=== PATIENT | male | born 1995 | race Two or more races ===

== ENCOUNTER 2024-04-29 11:14 | Emergency (ER) | payer MEDICAID ==
[~2024-04-29] VITALS: Ht 175.3 cm; Wt 91.9 kg
[2024-04-29] MEDS: cefTRIAXone SOD 1,000 MG VL IM ONE (13:46)
[2024-04-29] MEDS ORDERED: CEPH500T PO (14:28)
[2024-04-29] MEDS ORDERED: BACDST PO (14:28)
[2024-04-29 14:44] VITALS: BP 153/98; PULSE 85; RESP 17; TEMP 99.4; O2SAT 98
== END 2024-04-29 14:47 | disposition home or self-care (01) ==
LOC: ER 11:18
DX: S70.361A Insect bite (nonvenomous), right thigh, initial encounter (principal); I10 Essential (primary) hypertension; W57.XXXA Bitten or stung by nonvenomous insect and other nonvenomous arthropods, initial encounter; Y93.89 Activity, other specified; Y92.89 Other specified places as the place of occurrence of the external cause; Y99.8 Other external cause status
CPT/HCPCS: 96372; 99283; J0696

== ENCOUNTER 2025-02-22 16:43 | Inpatient (IN) | payer MEDICAID ==
[~2025-02-22] VITALS: Ht 175.3 cm; Wt 100.6 kg
[~2025-02-22 16:43] MED LIST: BACDST PO; CEPH500T PO
[2025-02-22 17:18] LABS: Basophils # (auto) 0.1 10 ^3/uL (0-0.2); Eosinophils # (auto) 0 10 ^3/uL (0-0.8); Mean Corpuscular Hemoglobin 34.5 pg (28.0-32.0)
[2025-02-22 17:20] VITALS: PULSE 105; RESP 20; O2SAT 94
[2025-02-22 17:20] LABS: Basophils % (auto) 1.4 % (0.0-2.0); Eosinophils % (auto) 0.3 % (0.0-7.0); Hematocrit 50.7 % (41.0-53.0); Lymphocytes # (auto) 1.8 10 ^3/uL (0.4-5.4); Lymphocytes % (auto) 33.2 % (10.0-50.0); Mean Corpuscular Hgb Conc. 35.5 g/dL (32.0-36.0); Mean Corpuscular Volume 97.2 fL (80.0-100.0); Monocytes # (auto) 0.6 10 ^3/uL (0-1.3); Monocytes % (auto) 10.2 % (0.0-12.0); Neutrophils % (auto) 54.9 % (37.0-80.0); Nucleated Red Blood Cells % 0.2 %; Platelet Count (auto) 268 10^3/uL (140-450); Red Blood Cells 5.21 10^6/uL (4.5-5.90); Red Cell Distribution Width 12.4 % (11.8-14.3); White Blood Cell 5.5 10^3/uL (4.4-10.8)
[2025-02-22] MEDS: LORazepam 2MG/ML-1ML VIAL IV ONE (17:21)
[2025-02-22] MEDS: chlordiazePOXIDE HCL 25 MG CAP PO ONE (17:21)
[2025-02-22] MEDS: SODIUM CHLORIDE 0.9% 2,000 ML IV ONE (17:21)
[2025-02-22 17:42] LABS: Alkaline Phosphatase 81 U/L (46-116); Anion Gap 16 (5-15); Calcium 9.8 mg/dL (8.7-10.4); Carbon Dioxide 22 mmol/L (20-31); Chloride 104 mmol/L (98-107); Sodium 142 mmol/L (136-145)
[2025-02-22 17:45] LABS: Alanine Aminotransferase 84 U/L (7-40); Albumin 5.1 g/dL (3.2-4.8); Aspartate Aminotransferase 63 U/L (13-40); BUN/Creatinine Ratio 6.8 (10.0-20.0); Bilirubin, Total 1.3 mg/dL (0.2-1.0); Blood Urea Nitrogen < 5 mg/dL (9-23); Glucose 116 mg/dL (74-106); Potassium 3.2 mmol/L (3.5-5.1); Total Protein 8.3 g/dL (5.7-8.2)
--- NOTE | 2025-02-22 18:21 | DVH ---
CHEST RADIOGRAPH Indication: etoh wdl Technique: Single frontal view of the chest was obtained Comparison: None FINDINGS: Lines and Tubes: None Lungs: No focal consolidation. Pleura: No effusion. No pneumothorax. Cardiomediastinal contours: Unremarkable Bones: No acute osseous abnormality. IMPRESSION: 1. No acute cardiopulmonary disease. HS:Y
--- NOTE | 2025-02-22 20:18 | ED.PDOC ---
History of Present Illness HPI Comments 39-year-old male brought in by family complaining of chest pain, generalized weakness and shakiness, onset this morning. Patient states he usually drinks a 12 pack of beer or more per day, however because he was not feeling well, he drank only a few beers today. He denies any nausea, vomiting, diaphoresis or edema. He states he feels very anxious. He has not had any loss of consciousness or seizure. Chief Complaint: Withdrawal Time Seen by MD: 16:59 Primary Care Provider: none Allergies: Coded Allergies: NO KNOWN ALLERGIES (Unverified , 10/27/23) Home Meds Active Scripts Cephalexin Monohydrate (Cephalexin) 500 Mg Tab, 1 TAB PO QID for 5 Days, #20 TAB 0 Refills Prov:GEORGE RODAS NP 04/29/24 Sulfamethoxazole W/Trimethopri (Bactrim Ds Tablet) 1 Tab Tb, 1 TAB PO BID for 7 Days, #14 TAB 0 Refills Prov:GEORGE RODAS NP 04/29/24 Mode of Arrival: Ambulatory Past Medical History PAST MEDICAL HISTORY: HTN Past Medical History (Other): Alcohol dependence Surgical History: Hernia Repair Family History Family History: Family hx of DM Social History Smoker: Cigarettes Alcohol: Heavy Drugs: Denies Drug Use Lives In: Home All Other Systems: Reviewed and Negative (Comprehensive systems review obtained and negative except for what is stated in the HPI.) Physical Exam General Appearance: Mild Distress HEENT: Other (Pupils and face symmetric. Moist mucous membranes.) Neck: Full Range of Motion, Normal Inspection Respiratory: Lungs Clear, No Accessory Muscle Use, No Respiratory Distress, Normal Breath Sounds Cardiovascular: No Edema, No JVD, Regular Rate/Rhythm Breast Exam: Deferred Gastrointestinal: Non Tender, Soft Genitalia: Deferred Pelvic: Deferred Rectal: Deferred Extremities: Normal inspection, Normal range of motion, Non-tender, No pedal edema Neurologic: Alert (Oriented x4), Normal Affect, Other (Anxious, shaky, ambulatory) Cerebellar Function: Tremor Reflexes: NOT DONE Skin: Dry, Normal Color, Warm Lymphatic: NOT DONE Was a procedure done? Was a procedure done?: No EKG EKG : Comments Sinus tach, rate 112, normal CT and QRS intervals, QTC prolonged at 509, normal axis, normal QRS, no ST/T change. Differential Dx Considerations may include: Alcohol withdrawal, anxiety, electrolyte imbalance, ACS, MD, arrhythmia, among others X-Ray, Labs, Meds, VS Vital Signs Date Time Temp Pulse Resp B/P (MAP) Pulse Ox O2 Delivery O2 Flow Rate FiO2 02/22/25 17:20 105 20 166/117 (133) 94 02/22/25 17:20 105 20 94 Room Air* 0 21 02/22/25 16:57 98.3 115 20 179/113 (135) 96 98.3 02/22/25 16:55 112 Lab Test 02/22/25 18:15 02/22/25 17:11 Range/Units Troponin I High Sensitivity 32 37 </=54 ng/L White Blood Count 5.5 4.4-10.8 10^3/uL Red Blood Count 5.21 4.5-5.90 10^6/uL Hemoglobin 18.0 H 13.5-17.5 g/dL Hematocrit 50.7 41.0-53.0 % Mean Corpuscular Volume 97.2 80.0-100.0 fL Mean Corpuscular Hemoglobin 34.5 H 28.0-32.0 pg Mean Corpuscular Hemoglobin Concent 35.5 32.0-36.0 g/dL Red Cell Distribution Width 12.4 11.8-14.3 % Platelet Count 268 140-450 10^3/uL Mean Platelet Volume 7.7 6.9-10.8 fL Neutrophils (%) (Auto) 54.9 37.0-80.0 % Lymphocytes (%) (Auto) 33.2 10.0-50.0 % Monocytes (%) (Auto) 10.2 0.0-12.0 % Eosinophils (%) (Auto) 0.3 0.0-7.0 % Basophils (%) (Auto) 1.4 0.0-2.0 % Neutrophils # (Auto) 3.0 1.6-8.6 10 ^3/uL Lymphocytes # (Auto) 1.8 0.4-5.4 10 ^3/uL Monocytes # (Auto) 0.6 0-1.3 10 ^3/uL Eosinophils # (Auto) 0 0-0.8 10 ^3/uL Basophils # (Auto) 0.1 0-0.2 10 ^3/uL Nucleated Red Blood Cells 0.2 % Sodium Level 142 136-145 mmol/L Potassium Level 3.2 L 3.5-5.1 mmol/L Chloride Level 104 98-107 mmol/L Carbon Dioxide Level 22 20-31 mmol/L Anion Gap 16 H 5-15 Blood Urea Nitrogen < 5 L 9-23 mg/dL Creatinine 0.74 0.700-1.30 mg/dL Glomerular Filtration Rate Calc 125 >90 mL/min BUN/Creatinine Ratio 6.8 L 10.0-20.0 Serum Glucose 116 H 74-106 mg/dL Calcium Level 9.8 8.7-10.4 mg/dL Total Bilirubin 1.3 H 0.2-1.0 mg/dL Aspartate Amino Transferase (AST) 63 H 13-40 U/L Alanine Aminotransferase (ALT) 84 H 7-40 U/L Alkaline Phosphatase 81 46-116 U/L B-Type Natriuretic Peptide 10.50 0-100 pg/mL Total Protein 8.3 H 5.7-8.2 g/dL Albumin 5.1 H 3.2-4.8 g/dL Current Medications Medications (Trade) Dose Ordered Sig/López Route Start Time Stop Time Status Last Admin Sodium Chloride 2,000 ml @ 1,000 mls/hr Q2H ONCE IV 02/22/25 17:00 02/22/25 18:59 DC 02/22/25 17:21 Lorazepam (Ativan Inj) 1 mg ONCE ONCE IV 02/22/25 17:00 02/22/25 17:02 DC 02/22/25 17:21 Chlordiazepoxide HCl (Librium Capsule) 50 mg ONCE ONCE PO 02/22/25 17:00 02/22/25 17:02 DC 02/22/25 17:21 X-Ray, Labs, Meds, VS Comment 29-year-old male with a history of hypertension and alcohol dependence complaining of chest pain, generalized weakness and shakiness. Patient admits to only drinking a few beers today. He states he typically drinks a 12 pack or more of beer per day. Vitals remarkable for heart rate 112, BP 179/113 Exam remarkable for tachycardia and tremors Rhythm strip independently interpreted by me: Sinus rhythm, rate 112, no ectopy. CBC remarkable, metabolic panel remarkable for potassium 3.2, total bili 1.3, AST 63, ALT 84, BNP and troponin negative Patient treated with the following in the ED: 1 L 0.9 normal saline IV bolus, Ativan 1 mg IV, Librium 50 mg p.o., effervescent potassium 50 mEq p.o. , hydralazine 5 mg IV On re-evaluation, patient states his symptoms have somewhat improved, however he still feels shaky and is not comfortable being discharged home. Plan is to admit the patient for treatment of alcohol withdrawal and blood pressure control. Time of 1ST Reevaluation: 20:16 Reevaluation 1ST: Improved Patient Education/Counseling: Diagnosis, Treatment, Need For Follow Up Family Education/Counseling: No Family Present Departure 1 Departure Time of Disposition: 20:17 Impression: Primary Impression: Alcohol withdrawal Qualified Codes: F10.939 - Alcohol use, unspecified with withdrawal, unspecified Additional Impressions: Hypokalemia Hypertensive urgency Disposition: 09 ADMITTED INPATIENT Admit to: [facility] Condition: Guarded Critical Care Note Critical Care Time?: No Stability Stability form required: No Heart Score Heart Score: Heart Score Response (Comments) Value History Moderate Suspicious 1 EKG Normal 0 Age <45 0 Risk Factors 1 or 2 risk factors 1 Troponin Normal limit 0 Total 2 IVETTE PANDA MD February 22, 2025 20:18
[2025-02-22] MEDS: ENOXAPARIN SOD 40 MG/0.4 ML SYRINGE SC ONE (20:45)
[2025-02-22] MEDS ORDERED: DOCUSATE SOD 100 MG CAP PO PRN (20:45)
[2025-02-22] MEDS: FOLIC ACID 1 MG in D5W 5% 50 ML INJ ONE (20:45)
[2025-02-22] MEDS ORDERED: MORPHINE SULFATE INJ 2 MG/ml SYRG IV PRN (20:45)
[2025-02-22] MEDS ORDERED: NITROGLYCERIN 0.4 MG SL TAB SL PRN (20:45)
[2025-02-22 21:09] LABS: Magnesium 1.9 mg/dL (1.6-2.6)
[2025-02-22] MEDS: POTASSIUM EFFERVESENT TAB 25 MEQ PO ONE (21:30)
[2025-02-22] MEDS: PANTOPRAZOLE 40 MG/10 ML VIAL INJ IV ONE (21:31)
[2025-02-22] MEDS: THIAMINE 100mg/ml INJ (200mg/2ml VIAL) IM ONE (21:31)
[2025-02-22] MEDS: hydrALAZINE HCL 20 MG/ML VL IV ONE ×2 (21:32→22:02)
[2025-02-22] MEDS: SODIUM CHLOR 0.9% PF (SALINE LOCK) 10ML VIAL/SYR IV SCH (21:34)
--- NOTE | 2025-02-22 21:35 | DVHHP2 ---
History of Present Illness History of Present Illness Patient is 29 years old male with past medical history of hypertension, alcohol dependence came with a complaint of chest pain. As per patient he started having chest pain in the morning around 9:00 a.m when he was lying down., gradual onset, central, pressure-like, 8/10 at the beginning no aggravating or relieving factor. Patient also reported feeling shaking, dizzy but no loss of consciousness. Patient also had nausea and vomiting once per no blood, yellowish fluid. On further inquiry patient reported feeling anxious, shaking of the hands. As per patient he drinks almost 12 beers per day for last 8 years, he did not a little bit less this morning and after that he started having all this symptoms. Patient denied any fever, acute constipation or diarrhea, acute joint pain or swelling, sick contact, acute dysarthria or change in vision. Initial lab workup revealed hypokalemia with a potassium 3.2, transaminitis with elevated serum bilirubin 1.3, AST 63, ALT 84, lactic acid 2.2, negative for troponin I and BNP. UDS negative. As per patient he did not see any doctor for a while. No PCP per patient, not seeing any doctor Past Medical History Hypertension, not on any medication Past Surgical History Bilateral inguinal hernia repair when he was child Family History Dad has hypertension, diabetes mellitus Past Social History Lives with parents, vapes, occasional marijuana, drink alcohol almost 12 beers per day for last 8 years. Home meds-denies taking any meds Review of Systems Review of Systems Allergy- NKDA Patient was seen today at the bedside. Cardiovascular- deny acute cough or palpitation Respiratory denies cough or short of breath or wheezing Gastrointestinal- denies any rectal bleeding, nausea or vomiting Musculoskeletal-denies acute joint swelling or tenderness or redness Neurological- mild tremor on both hands+ Psychiatry- denies depression or SI or HI Skin- denies acute rash or purpura Allergies: Coded Allergies: NO KNOWN ALLERGIES (Unverified , 10/27/23) Medications Current Medications Medications Dose Ordered Sig/López Route Start Time Stop Time Status Last Admin Dose Admin Sodium Chloride 10 ml Q8HR IV 02/22/25 22:00 Ondansetron HCl 4 mg Q4HP PRN IV 02/22/25 20:45 Docusate Sodium 100 mg BIDPRN PRN PO 02/22/25 20:45 Acetaminophen 650 mg Q6HP PRN PO 02/22/25 20:45 Morphine Sulfate 2 mg Q4HPRN PRN IV 02/22/25 20:45 Nitroglycerin 0.4 mg Q5MINP PRN SL 02/22/25 20:45 Morphine Sulfate 2 mg Q30M PRN IV 02/22/25 20:45 Enoxaparin Sodium 40 mg DAILY SC 02/23/25 10:00 Pantoprazole Sodium 40 mg DAILY IV 02/23/25 10:00 Thiamine HCl 100 mg DAILY IV 02/23/25 10:00 Folic Acid 1 mg/ Dextrose 50.2 ml @ 200.8 mls/ hr DAILY INJ 02/23/25 10:00 Folic Acid 1 mg/ Multivitamins 10 ml/Magnesium Sulfate 8 meq/ Thiamine HCl 100 mg/Dextrose 1,013.2 ml @ 125.001 mls/hr DAILY@1800 INJ 02/23/25 18:00 Hydralazine HCl 10 mg Q6HP PRN IV 02/22/25 21:30 UNV Lorazepam 1 mg Q2HPRN PRN IV 02/22/25 21:30 UNV Chlordiazepoxide HCl 5 mg Q4HPRN PRN PO 02/22/25 21:30 UNV Sodium Chloride 1,000 ml @ 150 mls/hr Q6H40M IV 02/22/25 21:30 UNV Exam Vital Signs Vital Signs Date Time Temp Pulse Resp B/P (MAP) Pulse Ox O2 Delivery O2 Flow Rate FiO2 02/22/25 21:19 99.2 94 20 164/107 (126) 96 99.2 02/22/25 17:20 Room Air* 0 21 Exam General examination- , alert, oriented, conversant HEENT- PEERLA, no acute nasal discharge Cardiovascular- S1-S2 audible, rate and rhythm regular, no murmur Respiratory- CTAB, no wheeze or rhonchi Gastrointestinal-nontender, bowel sound+. Nondistended Musculoskeletal-no acute joint swelling or tenderness or redness Lower extremity- no leg edema Neurological-mild tremor on both hands+ Psychiatry- denies depression or SI or HI Skin- no acute rash or purpura Labs/Xrays Labs Test 02/22/25 21:01 02/22/25 18:15 02/22/25 17:11 Range/Units Plasma/Serum Blood Alcohol 68.9 H <10 mg/dL Troponin I High Sensitivity 32 </=54 ng/L White Blood Count 5.5 4.4-10.8 10^3/uL Red Blood Count 5.21 4.5-5.90 10^6/uL Hemoglobin 18.0 H 13.5-17.5 g/dL Hematocrit 50.7 41.0-53.0 % Mean Corpuscular Volume 97.2 80.0-100.0 fL Mean Corpuscular Hemoglobin 34.5 H 28.0-32.0 pg Mean Corpuscular Hemoglobin Concent 35.5 32.0-36.0 g/dL Red Cell Distribution Width 12.4 11.8-14.3 % Platelet Count 268 140-450 10^3/uL Mean Platelet Volume 7.7 6.9-10.8 fL Neutrophils (%) (Auto) 54.9 37.0-80.0 % Lymphocytes (%) (Auto) 33.2 10.0-50.0 % Monocytes (%) (Auto) 10.2 0.0-12.0 % Eosinophils (%) (Auto) 0.3 0.0-7.0 % Basophils (%) (Auto) 1.4 0.0-2.0 % Neutrophils # (Auto) 3.0 1.6-8.6 10 ^3/uL Lymphocytes # (Auto) 1.8 0.4-5.4 10 ^3/uL Monocytes # (Auto) 0.6 0-1.3 10 ^3/uL Eosinophils # (Auto) 0 0-0.8 10 ^3/uL Basophils # (Auto) 0.1 0-0.2 10 ^3/uL Nucleated Red Blood Cells 0.2 % Sodium Level 142 136-145 mmol/L Potassium Level 3.2 L 3.5-5.1 mmol/L Chloride Level 104 98-107 mmol/L Carbon Dioxide Level 22 20-31 mmol/L Anion Gap 16 H 5-15 Blood Urea Nitrogen < 5 L 9-23 mg/dL Creatinine 0.74 0.700-1.30 mg/dL Glomerular Filtration Rate Calc 125 >90 mL/min BUN/Creatinine Ratio 6.8 L 10.0-20.0 Serum Glucose 116 H 74-106 mg/dL Calcium Level 9.8 8.7-10.4 mg/dL Magnesium Level 1.9 1.6-2.6 mg/dL Total Bilirubin 1.3 H 0.2-1.0 mg/dL Aspartate Amino Transferase (AST) 63 H 13-40 U/L Alanine Aminotransferase (ALT) 84 H 7-40 U/L Alkaline Phosphatase 81 46-116 U/L B-Type Natriuretic Peptide 10.50 0-100 pg/mL Total Protein 8.3 H 5.7-8.2 g/dL Albumin 5.1 H 3.2-4.8 g/dL Lipase 51 12-53 U/L Assessment/Plan Assessment/Plan Assessment and plan Acute alcohol withdrawal Acute chest pain rule out acute coronary syndrome Hypertensive urgency Alcohol dependence Lactic acidosis Mild hypokalemia Transaminitis Fatty liver Hepatomegaly Obesity potassium 3.2, transaminitis with elevated serum bilirubin 1.3, AST 63, ALT 84, lactic acid 2.2, Ultrasound of the abdomen revealed-Liver appears mildly enlarged measuring 17.8 cm and demonstrates diffuse increased echogenicity consistent with fatty infiltration . Plan Current CIWA score 4 Continue banana bag as prescribed Continue IV fluid as prescribed Other p.r.n. medication as prescribed Ordered thiamine Ordered folic acid UDS-negative Patient was counseled about the effect of alcoholism on health Patient refused to get any support regarding alcohol rehab Goals of care, Code status ; discussed with >15 minutes PUD prophylaxis: Pantoprazole DVT prophylaxis: Lovenox Plan discussed with Dr. Mcwilliams , nursing staff, Total time spent on patient evaluation, chart review, assessment and plan, discussion discussion >35 minutes Plan discussed with: Patient, Other (RN) My Orders Orders - [place] [facility] Procedure Category Date Status Time Admit ADMIT 02/22/25 Transmitted 20:44 Code Status CODE 02/22/25 Transmitted 20:44 Sodium Chloride Lock PHA 02/22/25 In Process (Saline Lock Ns) 22:00 Ondansetron Hcl PHA 02/22/25 In Process (Zofran) 20:45 Docusate Sodium PHA 02/22/25 In Process Capsule (Colace 20:45 Complete Blood Count LAB 02/23/25 Verified 04:00 Npo (Nothing By DIET 02/23/25 Transmitted Mouth) Diet Breakfast Acetaminophen Tablet PHA 02/22/25 In Process (Tylenol Tablet) 20:45 Morphine Sulfate PHA 02/22/25 In Process Injection 20:45 Nitroglycerin PHA 02/22/25 In Process Sublingual (Ntrostat 20:45 Morphine Sulfate PHA 02/22/25 In Process Injection 20:45 Oxygen By Nasal RT 02/22/25 Transmitted Cannula 20:44 Stat Ekg For Chest MARY 02/22/25 In Process Pain 20:44 Notify Of Changes MARY 02/22/25 In Process From Base 20:44 Bass Singer For MARY 02/22/25 In Process 24 Hours 20:44 Emergency Dysrhythmia MARY 02/22/25 In Process Protocol 20:44 Rhythm Strips Once MARY 02/22/25 In Process Every Shift 20:44 Enoxaparin Sodium PHA 02/23/25 In Process (Lovenox) 10:00 Pantoprazole PHA 02/23/25 In Process (Protonix) 10:00 Thiamine Inj PHA 02/23/25 In Process 10:00 Folic Acid PHA 02/23/25 In Process 10:00 Folic Acid... PHA 02/23/25 In Process 18:00 Thyroid Stimulating LAB 02/22/25 In Process Hormone 20:47 Comprehensive LAB 02/23/25 Verified Metabolic Panel 04:00 Magnesium LAB 02/23/25 Verified 04:00 Hydralazine Injection PHA 02/22/25 Logged (Apresoline Inject 21:30 Lorazepam 2mg/Ml Inj PHA 02/22/25 Logged (Ativan Inj) 21:30 Etoh Withdrawal MARY 02/22/25 In Process Assessment 21:24 Etoh Withdrawal MARY 02/22/25 In Process Assessment 21:24 Chlordiazepoxide Hcl PHA 02/22/25 Logged Capsule (Librium Ca 21:30 Sodium Chloride 0.9% PHA 02/22/25 Logged 21:30 Lactate Dehydrogenase LAB 02/22/25 Transmitted 21:28 Lactate Dehydrogenase LAB 02/23/25 Verified 04:00 Date of Service: February 22, 2025 Billing Provider: MARK MCWILLIAMS MD Common Visit Codes: 66109-SMABECG INP/OBS CARE (HIGH) Secondary Visit Codes: 28394-[id number] CARE PLAN 30 MINUTES [place] [facility] February 22, 2025 21:35
[2025-02-22] MEDS: ONDANSETRON HCL 4 MG/2 ML VIAL IV PRN (21:36)
[2025-02-22] MEDS: SODIUM CHLORIDE 0.9% 1,000 ML IV SCH (21:47)
[2025-02-22 22:55] VITALS: BP 152/87; PULSE 81; RESP 18; TEMP 98.6; O2SAT 97
--- NOTE | 2025-02-22 23:14 | DVH ---
INDICATION: HISTORY OF ALCOHOLISM, TRANSAMINITIS TECHNIQUE: Multiple real-time sonographic images were obtained of the right upper quadrant. COMPARISON: US ABDOMEN LIMITED on DOS: 10/27/23 FINDINGS: Liver appears mildly enlarged measuring 17.8 cm and demonstrates diffuse increased echogenicity consi stent with fatty infiltration . No focal lesion is identified in the liver. No evidence of intrahepat ic or extrahepatic biliary ductal dilatation with the common bile duct measuring 5 mm. Gallbladder appears unremarkable with no evidence of stones, wall thickening or pericholycystic fluid . Sonographic Conti's sign was reportedly negative. Right kidney measures 12.7 cm and appears unremarkable. No hydronephrosis. Pancreas is obscured by overlying bowel gas. No free fluid/fluid collection. IMPRESSION: No acute abnormality identified. Fatty infiltration of the liver.
[2025-02-22 23:33] LABS: Urine Bacteria None Seen /hpf (None Seen)
[2025-02-22 23:52] LABS: Benzodiazephine Screen, Urine Neg (NEGATIVE)
[2025-02-22 23:53] LABS: Cannabinoid Screen, Urine Neg (NEGATIVE)
[2025-02-22 23:54] LABS: Lactic Acid w/Reflex 2.2 mmol/L (0.4-2.0)
[2025-02-22 23:54] LABS: Amphetamine Screen, Urine Neg (NEGATIVE); Barbiturate Scree,Urine Neg (NEGATIVE); Opiate Scree,Urine Neg (NEGATIVE); Phencyclidine Screen, Urine Neg (NEGATIVE)
[2025-02-22 23:55] LABS: Cocaine Screen, Urine Neg (NEGATIVE)
[2025-02-22 23:57] LABS: Urine Blood Negative /uL (Negative); Urine Clarity Clear (Clear); Urine Color Yellow (Yellow); Urine Hyaline Cast FEW /lpf (0 - 2); Urine Mucus FEW (None Seen); Urine Protein, UAD 1+ (Negative); Urine Specific Gravity 1.024 (1.001-1.035); Urine Squamous Epithelial Cell None Seen /hpf (<5); Urine Urobilinogen 4 mg/dL (Negative); Urine WBC 1 /HPF (0-3)
[2025-02-23] VITALS (8 sets, daily range): BP systolic 95–165; BP diastolic 63–97; PULSE 52–102; RESP 16–18; TEMP 98.1–98.6; O2SAT 52–100
[2025-02-23 04:47] LABS: Basophils # (auto) 0.1 10 ^3/uL (0-0.2); Eosinophils # (auto) 0.1 10 ^3/uL (0-0.8); Monocytes # (auto) 0.6 10 ^3/uL (0-1.3); Neutrophils # (auto) 2.3 10 ^3/uL (1.6-8.6); Nucleated Red Blood Cells % 0.2 %
[2025-02-23 04:48] LABS: Basophils % (auto) 1.2 % (0.0-2.0); Eosinophils % (auto) 1.8 % (0.0-7.0); Hematocrit 45.9 % (41.0-53.0); Hemoglobin 16.2 g/dL (13.5-17.5); Lymphocytes # (auto) 1.7 10 ^3/uL (0.4-5.4); Lymphocytes % (auto) 37.1 % (10.0-50.0); Mean Corpuscular Hemoglobin 34.8 pg (28.0-32.0); Mean Corpuscular Hgb Conc. 35.2 g/dL (32.0-36.0); Monocytes % (auto) 12.1 % (0.0-12.0); Neutrophils % (auto) 47.8 % (37.0-80.0); Platelet Count (auto) 204 10^3/uL (140-450); Red Blood Cells 4.64 10^6/uL (4.5-5.90); Red Cell Distribution Width 12.2 % (11.8-14.3); White Blood Cell 4.7 10^3/uL (4.4-10.8)
[2025-02-23 05:05] LABS: Alkaline Phosphatase 61 U/L (46-116); Anion Gap 10 (5-15); Carbon Dioxide 28 mmol/L (20-31); Chloride 105 mmol/L (98-107); Glucose 86 mg/dL (74-106); Magnesium 1.7 mg/dL (1.6-2.6); Potassium 3.8 mmol/L (3.5-5.1); Sodium 143 mmol/L (136-145); Total Protein 7.1 g/dL (5.7-8.2)
[2025-02-23 05:06] LABS: Alanine Aminotransferase 62 U/L (7-40); Albumin 4.5 g/dL (3.2-4.8); Aspartate Aminotransferase 41 U/L (13-40); BUN/Creatinine Ratio 6.9 (10.0-20.0); Bilirubin, Total 1.6 mg/dL (0.2-1.0); Blood Urea Nitrogen < 5 mg/dL (9-23); Calcium 8.6 mg/dL (8.7-10.4)
[2025-02-23] MEDS: MAGNESIUM SULFATE 1GM/100ML 100 ML IV ONE (06:14)
[2025-02-23] MEDS: MORPHINE SULFATE INJ 2 MG/ml SYRG IV PRN (08:36)
[2025-02-23] MEDS: THIAMINE 100mg/ml INJ (200mg/2ml VIAL) IV SCH (09:27)
[2025-02-23] MEDS: PANTOPRAZOLE 40 MG/10 ML VIAL INJ IV SCH (09:28)
[2025-02-23] MEDS: ENOXAPARIN SOD 40 MG/0.4 ML SYRINGE SC SCH (09:31)
[2025-02-23] MEDS ORDERED: FOLIC ACID 1 MG in D5W 5% 50 ML INJ SCH (10:00)
[2025-02-23] MEDS: hydrALAZINE HCL 20 MG/ML VL IV PRN (11:33)
[2025-02-23 12:18] LABS: Hepatitis A Ab IgM Negative; Hepatitis B Core IgM Negative (Negative); Hepatitis B Surface Antibody Negative (Negative); Hepatitis B Surface Antigen Negative (Negative); Hepatitis C Antibody Negative (Negative)
--- NOTE | 2025-02-23 12:42 | ECG ---
[facility] Test Date: 2025-02-22 Test Time: 16:55:30 Pat Name: CORETTA SAWANT Department: ER Room: 0271T Gender: M Real Estate Transaction Coordinator: SAMMY : 1995 Requested By: IVETTE WEBB Order Number: [id number] Reading MD: Tobi Darden Measurements Intervals [place] Rate: 112 P: 41 NC: 142 QRS: 68 QRSD: 113 T: -1 QT: 373 QTc: 509 Interpretive Statements Sinus tachycardia Borderline intraventricular conduction delay Borderline T abnormalities, inferior leads Prolonged QT interval Electronically Signed On 02-25-2025 12:43:50 PDT by Tobi Darden Please click the below link to view image of tracing.
--- NOTE | 2025-02-23 14:45 | ECG ---
[facility] Test Date: 2025-02-23 Test Time: 10:29:13 Pat Name: CORETTA SAWANT Department: er Room: 0271T Gender: M Sp[employer] Box: hari : 1995 Requested By: TRACEY GATES Order Number: [id number] Reading MD: Tobi Darden Measurements Intervals [place] Rate: 59 P: 39 DE: 151 QRS: 50 QRSD: 125 T: 16 QT: 468 QTc: 464 Interpretive Statements Incomplete analysis due to missing data in precordial lead(s) Sinus arrhythmia Probable left ventricular hypertrophy ST elev, probable normal early repol pattern Missing lead(s): V4 Electronically Signed On 02-25-2025 12:45:41 PDT by Tobi Darden Please click the below link to view image of tracing.
--- NOTE | 2025-02-23 16:12 | DVHPNRES ---
Progress Note Date Seen: February 23, 2025 Resident Creating Document: TRACEY GATES RESIDENT Has the PT tested + for MRSA If YES, has PT been informed?: No Medical Necessity Reason Pt with a Central, PICC or Fol: No Medical Necessity Reason History of Present Illness Patient is 29 years old male with past medical history of hypertension, alcohol dependence came with a complaint of chest pain. As per patient he started having chest pain in the morning around 9:00 a.m when he was lying down., gradual onset, central, pressure-like, 8/10 at the beginning no aggravating or relieving factor. Patient also reported feeling shaking, dizzy but no loss of consciousness. Patient also had nausea and vomiting once per no blood, yellowish fluid. On further inquiry patient reported feeling anxious, shaking of the hands. As per patient he drinks almost 12 beers per day for last 8 years, he did not a little bit less this morning and after that he started having all this symptoms. Patient denied any fever, acute constipation or diarrhea, acute joint pain or swelling, sick contact, acute dysarthria or change in vision. Initial lab workup revealed hypokalemia with a potassium 3.2, transaminitis with elevated serum bilirubin 1.3, AST 63, ALT 84, lactic acid 2.2, negative for troponin I and BNP. UDS negative. No PCP per patient, not seeing any doctor Past Medical History: Hypertension, not on any medication Past Surgical History: Bilateral inguinal hernia repair when he was child Family History: Dad has hypertension, diabetes mellitus Past Social History: Lives with parents, vapes, occasional marijuana, drink alcohol almost 12 beers per day for last 8 years. Unemployed Home meds-denies taking any meds PN: 02/23/2025 Patient is 29 year male with a past medical history of hypertension but noncompliant on medication presented to the ED after having chest pain, and tremors for 1 day. According to the patient, about 9:00 a.m. yesterday morning when lying down patient started having a pressure-like sensation on his chest he rated it 8/10 and with no aggravating or relieving factor. Patient also noticed dizziness and shaking of his upper extremities. He did have vomiting the vomited he had nausea and vomited once. Vomitus was nonbloody, just yellowish in color. The patient is alcohol dependent. He mentioned that he drinks almost 12 bottles of beers each day and he has been doing so for the past 8 years. However he is only being in withdrawal what 3 times the the last withdrawal was about a year ago and then this episode. Subjective Review of Systems Constitutional: Denies fever no chills no feeling of malaise HEENT: Denies headache, ear pain, ear discharges, conjunctivitis, nasal discharge throat pain Cardiovascular: Denies chest pain, palpitation, orthopnea, PND, or pedal edema Respiratory: Denies shortness of breath, cough cough, sputum production, hemoptysis, GI: Denies abdominal pain, No nausea, vomiting, diarrhea, hematemesis, hematochezia, : Denies frequency, urgency, hematuria, Endocrine: Denies unintentional weight gain or weight loss, feeling of hot flashes, [place]: Denies easy bruising, bleeding disorders, epistaxis Musculoskeletal: Denies joint pains, muscle aches Psych: No evidence of depression, leah, suicidal ideation Objective vital signs Vital Sign Date Time Temp Pulse Resp B/P (MAP) Pulse Ox O2 Delivery O2 Flow Rate FiO2 02/23/25 13:00 98.6 86 18 165/70 (101) 96 98.6 02/22/25 17:20 Room Air* 0 21 Total Intake and Output 02/22/25 02/22/25 02/23/25 15:00 23:00 07:00 Intake Total 1000 ml Balance 1000 ml medications Current Medications Medications Dose Ordered Sig/López Route Start Time Stop Time Status Last Admin Dose Admin Sodium Chloride 10 ml Q8HR IV 02/22/25 22:00 Ondansetron HCl 4 mg Q4HP PRN IV 02/22/25 20:45 02/22/25 21:36 4 MG Docusate Sodium 100 mg BIDPRN PRN PO 02/22/25 20:45 Acetaminophen 650 mg Q6HP PRN PO 02/22/25 20:45 Morphine Sulfate 2 mg Q4HPRN PRN IV 02/22/25 20:45 02/23/25 08:36 2 MG Nitroglycerin 0.4 mg Q5MINP PRN SL 02/22/25 20:45 Morphine Sulfate 2 mg Q30M PRN IV 02/22/25 20:45 Enoxaparin Sodium 40 mg DAILY SC 02/23/25 10:00 02/23/25 09:31 40 MG Pantoprazole Sodium 40 mg DAILY IV 02/23/25 10:00 02/23/25 09:28 40 MG Thiamine HCl 100 mg DAILY IV 02/23/25 10:00 02/23/25 09:27 100 MG Folic Acid 1 mg/ Multivitamins 10 ml/Magnesium Sulfate 8 meq/ Thiamine HCl 100 mg/Dextrose 1,013.2 ml @ 125.001 mls/hr DAILY@1800 INJ 02/23/25 18:00 Hydralazine HCl 10 mg Q6HP PRN IV 02/22/25 21:30 02/23/25 11:33 10 MG Lorazepam 1 mg Q2HPRN PRN IV 02/22/25 21:30 Chlordiazepoxide HCl 5 mg Q4HPRN PRN PO 02/22/25 21:30 Sodium Chloride 1,000 ml @ 150 mls/hr Q6H40M IV 02/22/25 21:30 02/23/25 11:22 150 MLS/HR Folic Acid 1 mg DAILY PO 02/24/25 10:00 Examination General Appearance: Alert, Oriented X3, Cooperative, No acute distress. F lushed in the face HEENT: Atraumatic, PERRLA, EOMI, Mucous membrane moist/pink: No visual hallucination Respiratory: Clear to auscultation, Normal air movement Cardiovascular: Regular rate, Normal S1, Normal S2, No murmurs, no chest wall tenderness Abdominal: NO distention, no tenderness, bowel sounds present, no scars noted Extremities: Very mild tremors, Not significant; no tactile hallucinations Skin: No rashes, No breakdown, No significant lesion Neuro: Normal gait, Normal speech, Strength at 5/5 X4 ext, Normal tone, Sensation intact, Cranial nerves 3-12 NL, Reflexes 2+ Psych/Mental Status: Mental status NL, Mood NL laboratory and microbiology Laboratory Tests 02/23/25 04:19 Test 02/23/25 04:19 Range/Units Serum Glucose 86 74-106 mg/dL Problem List/Assessment/Plan Problem List/Assessment/Plan Assessment/ PLAN Acute alcohol withdrawal Alcohol dependence --> CIWA score :5 ( mild tremor, mild nausea, no vomiting, palpitation) --> Continue banana bag as prescribed --> Thiamine, folic acid --> IV Ativan acute 2 hours p.r.n. --> IV Librium 5 mg q.6 hours p.r.n. --> Counseled patient for more than 15 minute on alcohol cessation and the side effects of alcohol abuse. I recommended social service for the patient the patient declined and said he thinking endurance on. Hypertensive urgency --> Nefidepin 30 mg dailyu --> Hydralazine if SBP > 170 Acute chest pain rule out acute coronary syndrome --> troponin negative --> EKG showed prolong qtc Prolong QTc --> likely due to alcohol --> No on any antiboitcs or psych medication Lactic acidosis --> lactic acid 2.2, --> Fluids --> Improved Mild hypokalemia --> potassium 3.2, --> Replaced Hepatic steatosis --> Encourage weight loss and healthy diet Hepatomegaly Grade 1 Obesity --> BMI: 32.1 Transaminitis --> elevated serum bilirubin 1.3, AST 63, ALT 84, Goal of care discussed for more than 25 minutes: Full code He has and plan discussed with Dr. Marcum Plan discussed with: Patient Date of Service: February 23, 2025 Billing Provider: LORIE VALDEZ MD Common Visit Codes: [id number] INP/OBS CARE(HIGH) TRACEY GATES RESIDENT February 23, 2025 16:12 LORIE VALDEZ MD March 01, 2025 02:03
[2025-02-23] MEDS ORDERED: hydrALAZINE HCL 20 MG/ML VL IV PRN (16:30)
[2025-02-23] MEDS: FOLIC ACID 1 MG, MULTIPLE VITAMIN 10 ML, MAGNESIUM SULF SDV 50% 8 MEQ, THIAMINE INJ 100... INJ SCH (17:49)
[2025-02-23] MEDS: NIFEdipine ER 30 MG TAB PO ONE (17:50)
[2025-02-24] VITALS (11 sets, daily range): BP systolic 138–159; BP diastolic 64–109; PULSE 65–146; RESP 16–22; TEMP 97.7–98; O2SAT 94–100
[2025-02-24 09:45] LABS: Chloride 103 mmol/L (98-107); Sodium 136 mmol/L (136-145)
[2025-02-24] MEDS: NIFEdipine ER 30 MG TAB PO SCH (09:45)
[2025-02-24] MEDS: FOLIC ACID 1 MG TAB PO SCH (09:45)
[2025-02-24 09:46] LABS: Anion Gap 10 (5-15); Calcium 9.6 mg/dL (8.7-10.4); Carbon Dioxide 23 mmol/L (20-31)
[2025-02-24 09:51] LABS: Glucose 152 mg/dL (74-106); Potassium 3.4 mmol/L (3.5-5.1)
[2025-02-24 09:52] LABS: Blood Urea Nitrogen 5 mg/dL (9-23)
[2025-02-24] MEDS: LORazepam 2MG/ML-1ML VIAL IV PRN (09:52)
[2025-02-24] MEDS: NIFEdipine ER 30 MG TAB PO ONE (17:45)
[2025-02-24] MEDS: POTASSIUM EFFERVESENT TAB 25 MEQ PO ONE ×2 (17:47→22:17)
[2025-02-24] MEDS: hydroCHLOROthiazide 25 MG TAB PO ONE (17:48)
[2025-02-24] MEDS: MAGNESIUM OXIDE 400 MG TAB PO ONE (17:49)
[2025-02-24] MEDS: MULTIPLE VITAMIN TAB PO ONE (17:49)
[2025-02-24] MEDS: THIAMINE HCL 100 MG TAB PO ONE (17:49)
[2025-02-24] MEDS ORDERED: ACET-1882 PO (19:05)
[2025-02-24] MEDS ORDERED: MULTTAB99 PO (19:05)
[2025-02-24] MEDS ORDERED: NIFE1TAB31 PO (19:05)
[2025-02-24] MEDS ORDERED: FOLI-119 PO (19:05)
[2025-02-24] MEDS ORDERED: THIA100T10 PO (19:05)
[2025-02-24] MEDS ORDERED: HYDR25TA5 PO (19:05)
[2025-02-24] MEDS ORDERED: CHL10C PO (19:06)
[2025-02-24] MEDS ORDERED: GABA300T4 PO ×2 (19:13→19:15)
--- NOTE | 2025-02-24 19:18 | DVHDSRES ---
Discharge Summary Date of Admission Resident Creating Document: TRACEY GATES RESIDENT February 22, 2025 at 20:44 Date of Discharge: February 24, 2025 Admitting Diagnosis alcohol dependence came with a complaint of chest pain. Labs/Diagnostic Data: PATIENT: CORETTA SAWANT ACCT: [id number] UNIT: [id number] : 1995 LOC: ER ROOM / BED: / AGE / SEX: 29 / M ADM STATUS: REG ER SERVICE 1659 ORDERING PHYSICIAN: IVETTE PANDA MD PROCEDURE(s): CXRP - CHEST PORTABLE REASON: etoh wdl ORDER NUMBER(s): [id number], ACCESSION NUMBER(s): [id number] CHEST RADIOGRAPH Indication: etoh wdl Technique: Single frontal view of the chest was obtained Comparison: None FINDINGS: Lines and Tubes: None Lungs: No focal consolidation. Pleura: No effusion. No pneumothorax. Cardiomediastinal contours: Unremarkable Bones: No acute osseous abnormality. IMPRESSION: 1. No acute cardiopulmonary disease. HS:Y ATED BY: WANG VIDALES Jr. DO DICTATED DATE/TIME: 02/22/25 1819 PATIENT: CORETTA SAWANT ACCT: [id number] UNIT: [id number] : 1995 LOC: OVERFLOW ROOM / BED: [address] [place] [address] / A AGE / SEX: 29 / M ADM STATUS: ADM IN SERVICE ORDERING PHYSICIAN: PAPO VALE PROCEDURE(s): ABDL - ABDOMEN LIMITED REASON: HISTORY OF ALCOHOLISM, TRANSAMINITIS ORDER NUMBER(s): [id number], ACCESSION NUMBER(s): [id number] INDICATION: HISTORY OF ALCOHOLISM, TRANSAMINITIS TECHNIQUE: Multiple real-time sonographic images were obtained of the right upper quadrant. COMPARISON: US ABDOMEN LIMITED on DOS: 10/27/23 FINDINGS: Liver appears mildly enlarged measuring 17.8 cm and demonstrates diffuse increased echogenicity consistent with fatty infiltration . No focal lesion is identified in the liver. No evidence of intrahepatic or extrahepatic biliary ductal dilatation with the common bile duct measuring 5 mm. Gallbladder appears unremarkable with no evidence of stones, wall thickening or pericholycystic fluid. Sonographic Conti's sign was reportedly negative. Right kidney measures 12.7 cm and appears unremarkable. No hydronephrosis. Pancreas is obscured by overlying bowel gas. No free fluid/fluid collection. IMPRESSION: No acute abnormality identified. Fatty infiltration of the liver. ATED BY: GUILLERMO DICKERSON MD DICTATED DATE/TIME: 02/22/25 0174 Laboratory Results Test 02/24/25 08:35 02/23/25 04:19 02/23/25 01:38 02/22/25 23:00 Sodium Level 136 mmol/L (136-145) Potassium Level 3.4 mmol/L (3.5-5.1) Chloride Level 103 mmol/L (98-107) Carbon Dioxide Level 23 mmol/L (20-31) Anion Gap 10 (5-15) Blood Urea Nitrogen 5 mg/dL (9-23) Creatinine 0.83 mg/dL (0.700-1.30) Glomerular Filtration Rate Calc 121 mL/min (>90) BUN/Creatinine Ratio 6.0 (10.0-20.0) Serum Glucose 152 mg/dL (74-106) Calcium Level 9.6 mg/dL (8.7-10.4) White Blood Count 4.7 10^3/uL (4.4-10.8) Red Blood Count 4.64 10^6/uL (4.5-5.90) Hemoglobin 16.2 g/dL (13.5-17.5) Hematocrit 45.9 % (41.0-53.0) Mean Corpuscular Volume 99.0 fL (80.0-100.0) Mean Corpuscular Hemoglobin 34.8 pg (28.0-32.0) Mean Corpuscular Hemoglobin Concent 35.2 g/dL (32.0-36.0) Red Cell Distribution Width 12.2 % (11.8-14.3) Platelet Count 204 10^3/uL (140-450) Mean Platelet Volume 8.0 fL (6.9-10.8) Neutrophils (%) (Auto) 47.8 % (37.0-80.0) Lymphocytes (%) (Auto) 37.1 % (10.0-50.0) Monocytes (%) (Auto) 12.1 % (0.0-12.0) Eosinophils (%) (Auto) 1.8 % (0.0-7.0) Basophils (%) (Auto) 1.2 % (0.0-2.0) Neutrophils # (Auto) 2.3 10 ^3/uL (1.6-8.6) Lymphocytes # (Auto) 1.7 10 ^3/uL (0.4-5.4) Monocytes # (Auto) 0.6 10 ^3/uL (0-1.3) Eosinophils # (Auto) 0.1 10 ^3/uL (0-0.8) Basophils # (Auto) 0.1 10 ^3/uL (0-0.2) Nucleated Red Blood Cells 0.2 % Magnesium Level 1.7 mg/dL (1.6-2.6) Total Bilirubin 1.6 mg/dL (0.2-1.0) Aspartate Amino Transferase (AST) 41 U/L (13-40) Alanine Aminotransferase (ALT) 62 U/L (7-40) Alkaline Phosphatase 61 U/L (46-116) Lactate Dehydrogenase 215 U/L (120-246) Total Protein 7.1 g/dL (5.7-8.2) Albumin 4.5 g/dL (3.2-4.8) Lactic Acid Level 1.2 mmol/L (0.4-2.0) Urine Color Yellow (Yellow) Urine Clarity Clear (Clear) Urine pH 7.0 (5.0-9.0) Urine Specific [place] 1.024 (1.001-1.035) Urine Protein 1+ (Negative) Urine Ketones 2+ (Negative) Urine Blood Negative /uL (Negative) Urine Nitrite Negative (Negative) Urine Bilirubin Negative (Negative) Urine Urobilinogen 4 mg/dL (Negative) Urine Leukocyte Esterase Negative /uL (Negative) Urine RBC 4 /hpf (0 - 3) Urine Microscopic WBC 1 /HPF (0-3) Urine Squamous Epithelial Cells None seen /hpf (<5) Urine Bacteria None seen /hpf (None Seen) Urine Hyaline Casts Few /lpf (0 - 2) Urine Mucus Few (None Seen) Urine Glucose Normal mg/dL (Normal) Urine Opiates Screen Neg (NEGATIVE) Urine Fentanyl Screen Neg (NEGATIVE) Urine Barbiturates Screen Neg (NEGATIVE) Urine Phencyclidine Screen Neg (NEGATIVE) Urine Amphetamines Screen Neg (NEGATIVE) Urine Benzodiazepines Screen Neg (NEGATIVE) Urine Cocaine Screen Neg (NEGATIVE) Urine Cannabinoids Screen Neg (NEGATIVE) Test 02/22/25 21:01 02/22/25 18:15 02/22/25 17:11 Plasma/Serum Blood Alcohol 68.9 mg/dL (<10) Troponin I High Sensitivity 32 ng/L (</=54) B-Type Natriuretic Peptide 10.50 pg/mL (0-100) Lipase 51 U/L (12-53) Thyroid Stimulating Hormone (TSH) 1.90 uIU/mL (0.55-4.78) Hepatitis A IgM Antibody Negative Hepatitis B Surface Antigen Negative (Negative) Hepatitis B Surface Antibody Negative (Negative) Hepatitis B Core IgM Antibody Negative (Negative) Hepatitis C Antibody Negative (Negative) Other Laboratory Tests 02/24/25 08:35 02/23/25 04:19 Brief Hx & Hospital Course: History of Present Illness Patient is 29 years old male with past medical history of hypertension, alcohol dependence came with a complaint of chest pain. As per patient he started having chest pain in the morning around 9:00 a.m when he was lying down., gradual onset, central, pressure-like, 8/10 at the beginning no aggravating or relieving factor. Patient also reported feeling shaking, dizzy but no loss of consciousness. Patient also had nausea and vomiting once per no blood, yellowish fluid. On further inquiry patient reported feeling anxious, shaking of the hands. As per patient he drinks almost 12 beers per day for last 8 years, he did not a little bit less this morning and after that he started having all this symptoms. Patient denied any fever, acute constipation or diarrhea, acute joint pain or swelling, sick contact, acute dysarthria or change in vision. Initial lab workup revealed hypokalemia with a potassium 3.2, transaminitis with elevated serum bilirubin 1.3, AST 63, ALT 84, lactic acid 2.2, negative for troponin I and BNP. UDS negative. No PCP per patient, not seeing any doctor Past Medical History: Hypertension, not on any medication Past Surgical History: Bilateral inguinal hernia repair when he was child Family History: Dad has hypertension, diabetes mellitus Past Social History: Lives with parents, vapes, occasional marijuana, drink alcohol almost 12 beers per day for last 8 years. Unemployed Home meds-denies taking any meds Brief Hospital course Patient is 29 year male with a past medical history of hypertension but noncompliant on medication presented to the ED after having chest pain, and tremors for 1 day. According to the patient, about 9:00 a.m. 02/22/2025 when lying bed, patient started having a pressure-like sensation on his chest. he rated it 8/10 and with no aggravating or relieving factor. Patient also noticed dizziness and shaking of his upper extremities. He vomited he had nausea and vomited once. Vomitus was nonbloody, just yellowish in color. The patient is alcohol dependent. He mentioned that he drinks almost 12 bottles of beers each day and he has been doing so for the past 8 years. Patient mentioned that he has had about 3 withdrawal of the last 1 being last year. He denies any dizziness, seizures, tactile fremitus tactile hallucination visual hallucination nausea. The only thing he experiences is mild tremors and tachycardia. Of note patient's blood pressure was also highly elevated he was started on nifedipine and we did not nifedipine 30 we did not improve his blood pressure be tied cardiac chlorothiazide 12.5 was also added. Patient was feeling better and plan is discharge him home and follow back up at the discharge Clinic in 7 days. Re view of systems Constitutional: Denies fever no chills no feeling of malaise HEENT: Denies headache, ear pain, ear discharges, conjunctivitis, nasal discharge throat pain Cardiovascular: Denies chest pain, palpitation, orthopnea, PND, or pedal edema Respiratory: Denies shortness of breath, cough cough, sputum production, hemoptysis, GI: Denies abdominal pain, nausea, vomiting, diarrhea, hematemesis, hematochezia, : Denies frequency, urgency, hematuria, Endocrine: Denies unintentional weight gain or weight loss, feeling of hot flashes, [place]: Denies easy bruising, bleeding disorders, epistaxis Musculoskeletal: Denies joint pains, muscle aches Psych: No evidence of depression, leah, suicidal ideation Examination General Appearance: Alert, Oriented X3, Cooperative, No acute distress HEENT: Atraumatic, PERRLA, EOMI, Mucous membrane moist/pink Respiratory: Clear to auscultation, Normal air movement Cardiovascular: Regular rate, Normal S1, Normal S2, No murmurs, no chest wall tenderness Abdominal: NO distention, no tenderness, bowel sounds present, no scars noted Extremities: No clubbing, No cyanosis, No edema, Normal pulses, No tenderness/swelling Skin: No rashes, No breakdown, No significant lesion Neuro: Normal gait, Normal speech, Strength at 5/5 X4 ext, Normal tone, Sensation intact, Cranial nerves 3-12 NL, Reflexes 2+ Psych/Mental Status: Mental status NL, Mood NL Diagnosis Acute alcohol withdrawal Alcohol dependence Hypertensive urgency Acute chest pain rule out acute coronary syndrome Prolong QTc Lactic acidosis Mild hypokalemia Hepatic steatosis Hepatomegaly Grade 1 Obesity,BMI: 32.1 Transaminitis Discharge plan Continue Antihypertensive medication (nifedipine 50mg daily , hydrochlorothiazide 12.5) Counseled patient extensively on alcohol cessation Continue folic acid 1mg daily Continue thiamine 100mg daily Follow up at the discharge clinic in 7 days for reevaluation Find a PCP and maintain appointment with him/her for continuity of care Discharge plan discussed with DR. Marcum. Condition at Discharge: Stable Final Diagnosis/Problems List Acute alcohol withdrawal Alcohol dependence Hypertensive urgency Acute chest pain rule out acute coronary syndrome Prolong QTc Lactic acidosis Mild hypokalemia Hepatic steatosis Hepatomegaly Grade 1 Obesity,BMI: 32.1 Transaminitis Discharge Disposition: Home Discharge Instruct/Medications Diet: Regular Activity: No Restrictions, As Tolerated Follow Up/Referral: 7 DAYs at the Discharge clinic Medications: Nifedipine 60mg daily CHLOROTHIAZIDE 12.5 Discharge Statement: "Patient was advised to return to the ER or call 911 if any headaches, dizziness, shortness of breath, chest pain, abdominal pain, bleeding, fevers, or worsening of medical condition. Patient was counseled about treatment plan, medications, possible side effects, patientverbalized understanding. All questions were answered to the best of my ability. This discharge took greater then 30 minutes in planning, reviewing documentation, counseling the patient, and discussing with other team members." ASSESSMENT ASSESSMENT Assessment Acute alcohol withdrawal Alcohol dependence Hypertensive urgency Acute chest pain rule out acute coronary syndrome Prolong QTc Lactic acidosis Mild hypokalemia Hepatic steatosis Hepatomegaly Grade 1 Obesity,BMI: 32.1 Transaminitis Date of Service: February 24, 2025 Billing Provider: LORIE VALDEZ MD Common Visit Codes: 53993-OMM/OBS DISCH DAY >30min TRACEY GATES RESIDENT February 24, 2025 19:18 LORIE VALDEZ MD March 02, 2025 00:28
[2025-02-24] MEDS: chlordiazePOXIDE HCL 5 MG CAP PO PRN (20:46)
[2025-02-24] MEDS: SODIUM CHLORIDE 0.9% 500 ML IV ONE (21:00)
[2025-02-24] MEDS: ACETAMINOPHEN 325 MG TAB PO PRN (23:55)
[2025-02-25 01:00] VITALS: BP 147/89; PULSE 140; RESP 18; TEMP 102.6; O2SAT 94
[2025-02-25 01:07] VITALS: PULSE 120; TEMP 98.4
[2025-02-25 03:30] VITALS: PULSE 111
[2025-02-25 05:00] VITALS: BP 149/101; PULSE 121; RESP 18; TEMP 99.5; O2SAT 91
--- NOTE | 2025-02-25 07:01 | DVHPNRES ---
Progress Note Date Seen: February 24, 2025 Resident Creating Document: TRACEY GATES RESIDENT Has the PT tested + for MRSA If YES, has PT been informed?: No Medical Necessity Reason Pt with a Central, PICC or Fol: No Medical Necessity Reason History of Present Illness Patient is 29 years old male with past medical history of hypertension, alcohol dependence came with a complaint of chest pain. As per patient he started having chest pain in the morning around 9:00 a.m when he was lying down., gradual onset, central, pressure-like, 8/10 at the beginning no aggravating or relieving factor. Patient also reported feeling shaking, dizzy but no loss of consciousness. Patient also had nausea and vomiting once per no blood, yellowish fluid. On further inquiry patient reported feeling anxious, shaking of the hands. As per patient he drinks almost 12 beers per day for last 8 years, he did not a little bit less this morning and after that he started having all this symptoms. Patient denied any fever, acute constipation or diarrhea, acute joint pain or swelling, sick contact, acute dysarthria or change in vision. Initial lab workup revealed hypokalemia with a potassium 3.2, transaminitis with elevated serum bilirubin 1.3, AST 63, ALT 84, lactic acid 2.2, negative for troponin I and BNP. UDS negative. No PCP per patient, not seeing any doctor Past Medical History: Hypertension, not on any medication Past Surgical History: Bilateral inguinal hernia repair when he was child Family History: Dad has hypertension, diabetes mellitus Past Social History: Lives with parents, vapes, occasional marijuana, drink alcohol almost 12 beers per day for last 8 years. Unemployed Home meds-denies taking any meds PN: 02/23/2025 Patient is 29 year male with a past medical history of hypertension but noncompliant on medication presented to the ED after having chest pain, and tremors for 1 day. According to the patient, about 9:00 a.m. yesterday morning when lying down patient started having a pressure-like sensation on his chest he rated it 8/10 and with no aggravating or relieving factor. Patient also noticed dizziness and shaking of his upper extremities. He did have vomiting the vomited he had nausea and vomited once. Vomitus was nonbloody, just yellowish in color. The patient is alcohol dependent. He mentioned that he drinks almost 12 bottles of beers each day and he has been doing so for the past 8 years. However he is only being in withdrawal what 3 times the the last withdrawal was about a year ago and then this episode. PN: 02/25/2025 Patient was not discharged yesterday because around the evening time patient is started having sinus tachycardia with heart rate in the 120s and his blood pressure was also started going up. Therefore the night on-call doctor cancel the discharge and keep the patient for another day. This morning patient's blood pressure was a little better 138/87 and his heart rate was 104. By this time, I had resubmitted another discharge order. By mid morning. patient started running temperature ( 99.9) and elevated HR and tremors. Patient received 1mg Ativan and discharge order canclled. However, Nurse didnot see the cancelled order and disharge the patient. I called and apologize to the patient. I sent augmentin to his pharmacy and report to the Discharge clinic on Sunday for reevaluation and blood draws for culture. Subjective Review of Systems Constitutional: Denies fever no chills no feeling of malaise HEENT: Denies headache, ear pain, ear discharges, conjunctivitis, nasal discharge throat pain Cardiovascular: Denies chest pain, palpitation, orthopnea, PND, or pedal edema Respiratory: Denies shortness of breath, cough cough, sputum production, hemoptysis, GI: Denies abdominal pain, nausea, vomiting, diarrhea, hematemesis, hematochezia, : Denies frequency, urgency, hematuria, Endocrine: Denies unintentional weight gain or weight loss, feeling of hot flashes, Chen[place]: Denies easy bruising, bleeding disorders, epistaxis Musculoskeletal: Denies joint pains, muscle aches Psych: No evidence of depression, leah, suicidal ideation Objective vital signs Vital Sign Date Time Temp Pulse Resp B/P (MAP) Pulse Ox O2 Delivery O2 Flow Rate FiO2 02/25/25 05:00 99.5 121 18 149/101 (117) 91 99.5 02/24/25 20:00 Room Air* 0 21 Total Intake and Output 02/24/25 02/24/25 02/25/25 15:00 23:00 07:00 Intake Total 1500 ml 1800 ml Balance 1500 ml 1800 ml medications Current Medications Medications Dose Ordered Sig/López Route Start Time Stop Time Status Last Admin Dose Admin Sodium Chloride 10 ml Q8HR IV 02/22/25 22:00 02/25/25 05:43 10 ML Ondansetron HCl 4 mg Q4HP PRN IV 02/22/25 20:45 02/22/25 21:36 4 MG Docusate Sodium 100 mg BIDPRN PRN PO 02/22/25 20:45 Acetaminophen 650 mg Q6HP PRN PO 02/22/25 20:45 02/24/25 23:55 650 MG Morphine Sulfate 2 mg Q4HPRN PRN IV 02/22/25 20:45 02/23/25 08:36 2 MG Nitroglycerin 0.4 mg Q5MINP PRN SL 02/22/25 20:45 Morphine Sulfate 2 mg Q30M PRN IV 02/22/25 20:45 Enoxaparin Sodium 40 mg DAILY SC 02/23/25 10:00 02/24/25 09:44 40 MG Pantoprazole Sodium 40 mg DAILY IV 02/23/25 10:00 02/24/25 09:43 40 MG Thiamine HCl 100 mg DAILY IV 02/23/25 10:00 02/24/25 09:43 100 MG Lorazepam 1 mg Q2HPRN PRN IV 02/22/25 21:30 02/24/25 23:12 1 MG Chlordiazepoxide HCl 5 mg Q4HPRN PRN PO 02/22/25 21:30 02/24/25 20:46 5 MG Sodium Chloride 1,000 ml @ 150 mls/hr Q6H40M IV 02/22/25 21:30 02/24/25 23:37 150 MLS/HR Folic Acid 1 mg DAILY PO 02/24/25 10:00 02/24/25 09:45 1 MG Hydralazine HCl 10 mg Q6HP PRN IV 02/23/25 16:30 Multivitamins 1 tab DAILY PO 02/25/25 10:00 Magnesium Oxide 400 mg DAILY PO 02/25/25 10:00 Thiamine HCl 100 mg DAILY PO 02/25/25 10:00 Hydrochlorothiazide 12.5 mg DAILY PO 02/25/25 10:00 Nifedipine 60 mg DAILY PO 02/25/25 10:00 Examination General Appearance: Alert, Oriented X3, Cooperative, No acute distress HEENT: Atraumatic, PERRLA, EOMI, Mucous membrane moist/pink, red eye ( Not conjunctivitis) Respiratory: Clear to auscultation, Normal air movement Cardiovascular: Regular rate, Normal S1, Normal S2, No murmurs, no chest wall tenderness Abdominal: NO distention, no tenderness, bowel sounds present, no scars noted Extremities: No clubbing, No cyanosis, No edema, Normal pulses, No tenderness/swelling Skin: No rashes, No breakdown, No significant lesion Neuro: Normal gait, Normal speech, Strength at 5/5 X4 ext, Normal tone, Sensation intact, Cranial nerves 3-12 NL, Reflexes 2+ Psych/Mental Status: Mental status NL, Mood NL laboratory and microbiology Laboratory Tests 02/24/25 08:35 02/23/25 04:19 Test 02/24/25 08:35 Range/Units Serum Glucose 152 H 74-106 mg/dL Problem List/Assessment/Plan Problem List/Assessment/Plan Assessment/ PLAN Acute alcohol withdrawal Alcohol dependence --> CIWA score :5 ( mild tremor, mild nausea, no vomiting, palpitation) --> Continue banana bag as prescribed --> Thiamine, folic acid --> IV Ativan acute 2 hours p.r.n. --> IV Librium 5 mg q.6 hours p.r.n. --> Counseled patient for more than 15 minute on alcohol cessation and the side effects of alcohol abuse. I recommended social service for the patient the patient declined and said he thinking endurance on. Hypertensive urgency --> Nefidepin 30 mg daily --> Hydralazine if SBP > 170 --> Blood pressure still very high Acute chest pain rule out acute coronary syndrome --> troponin negative --> EKG showed prolong qtc Prolong QTc --> likely due to alcohol --> No on any antiboitcs or psych medication Lactic acidosis --> lactic acid 2.2, --> Fluids --> Improved Mild hypokalemia --> potassium 3.2, --> Replaced Hepatic steatosis --> Encourage weight loss and healthy diet Hepatomegaly Grade 1 Obesity --> BMI: 32.1 Transaminitis --> elevated serum bilirubin 1.3, AST 63, ALT 84, Sent Augmentin to his pharmacy and will see him on Sunday02/27/2025 FOR reevaluation. He has and plan discussed with Dr. Marcum Plan discussed with: Patient My Orders My Orders Orders - TRACEY GATES Procedure Category Date Status Time Hydrochlorothiazide PHA 02/25/25 In Process Tablet (Hydrochlorot 10:00 Nifedipine Er PHA 02/25/25 In Process (Procardia Xl 10:00 Communication Order ORDERS 02/24/25 Transmitted 18:07 Schedule For Dc MARY 02/24/25 In Process Clinic F/U 18:58 TRACEY GATES February 25, 2025 07:01
[2025-02-25 08:05] VITALS: PULSE 112; RESP 16; O2SAT 95
[2025-02-25] MEDS: MULTIPLE VITAMIN TAB PO SCH (08:44)
[2025-02-25] MEDS: MAGNESIUM OXIDE 400 MG TAB PO SCH (08:44)
[2025-02-25] MEDS: THIAMINE HCL 100 MG TAB PO SCH (08:44)
[2025-02-25] MEDS: NIFEdipine ER 30 MG TAB PO SCH (08:45)
[2025-02-25] MEDS: hydroCHLOROthiazide 25 MG TAB PO SCH (08:46)
[2025-02-25 09:02] VITALS: BP 137/88; PULSE 127; RESP 18; TEMP 99.6; O2SAT 94
[2025-02-25 09:22] LABS: Anion Gap 9 (5-15); Calcium 9.7 mg/dL (8.7-10.4); Carbon Dioxide 25 mmol/L (20-31); Potassium 3.6 mmol/L (3.5-5.1)
[2025-02-25 09:28] LABS: BUN/Creatinine Ratio 8.5 (10.0-20.0)
[2025-02-25 09:30] LABS: Blood Urea Nitrogen 8 mg/dL (9-23); Chloride 98 mmol/L (98-107); Glucose 121 mg/dL (74-106); Sodium 132 mmol/L (136-145)
[2025-02-25] MEDS ORDERED: SODIUM CHLORIDE 0.9% 1,000 ML IV SCH (11:15)
[2025-02-25] MEDS ORDERED: AMPICILLIN & SULBACTAM SODIUM 3 GM in SODIUM CHL 0.9% 100 ML IV SCH (12:00)
--- NOTE | 2025-02-25 13:20 | ECG ---
[facility] Test Date: 2025-02-24 Test Time: 20:39:20 Pat Name: CORETTA SAWANT Department: Room: 0271T A Gender: M Inspector Crystal: at : 1995 Requested By: CRISTEL CONTRERAS Order Number: [id number] Reading MD: Tobi Darden Measurements Intervals [place] Rate: 143 P: 60 NV: 121 QRS: 85 QRSD: 104 T: -24 QT: 290 QTc: 447 Interpretive Statements Sinus tachycardia Borderline T abnormalities, inferior leads Electronically Signed On 02-25-2025 13:53:54 PDT by Tobi Darden Please click the below link to view image of tracing.
--- NOTE | 2025-02-25 16:02 | DVHSR ---
APPROVED REPORT EXAM: Two-dimensional and M-mode echocardiogram with Doppler and color Doppler. Blood Pressure: 159/97 mmHg INDICATION Chest Pain RISK FACTORS Height: 5'9, Weight: 217 DIMENSIONS LVDd5.0 (3.8-5.7cm)LA (2D)3.9 (1.9-4.0cm)Aortic Root3.6 (2.0-3.7cm) LVDs3.6 (2.5-4.0cm)LA (MM) (1.9-4.0cm)Aortic Cusp Exc1.9 (1.5-2.0cm) EF (%) 54.5 (55-70%)Rt. Atrium4.1 (1.9-4.0cm)Asc. Aorta cm IVSd0.8 (0.7-1.1cm)RV (D)4.9 (1.8-2.4cm) PWd1.0 (0.7-1.1cm) Mitral Valve MitralMitral Stenosis E wave0.82m/sMV Mean GR.mmHg A wave0.66m/sMV Peak GR.mmHg E/A ratio1.22D MVAcm2 DECEL [id number] 1/2 Timems Aortic Valve Aortic ValveAortic Stenosis V11.03m/Samantha Mean GR.6mmHg V21.61m/Samantha Peak GR.10mmHg LVOT Diameter2.7 (1.8-2.4cm)Doppler AVA3.66cm2 AI P 1/2 Jjyg613.87ms Pulmonic Valve V21.11m/s Conclusion Technically difficult study. Sinus rhythm. Right atrial and right ventricular enlargement of mild degree. Normal valves. EF of 60% with normal RV function. Dopplers unremarkable. No pericardial effusion masses or vegetations.
[2025-02-25] MEDS ORDERED: AUG875T PO (16:55)
--- NOTE | 2025-02-26 20:21 | DVHDSRES ---
Discharge Summary Date of Admission Resident Creating Document: TRACEY GATES RESIDENT February 22, 2025 at 20:44 Date of Discharge: February 25, 2025 Admitting Diagnosis Alcohol withdrawal hypertensive urgency Labs/Diagnostic Data: V PATIENT: CORETTA SAWANT ACCT: [id number] UNIT: [id number] : 1995 LOC: ER ROOM / BED: / AGE / SEX: 29 / M ADM STATUS: REG ER SERVICE 1659 ORDERING PHYSICIAN: IVETTE PANDA MD PROCEDURE(s): CXRP - CHEST PORTABLE REASON: etoh wdl ORDER NUMBER(s): [id number], ACCESSION NUMBER(s): [id number] CHEST RADIOGRAPH Indication: etoh wdl Technique: Single frontal view of the chest was obtained Comparison: None FINDINGS: Lines and Tubes: None Lungs: No focal consolidation. Pleura: No effusion. No pneumothorax. Cardiomediastinal contours: Unremarkable Bones: No acute osseous abnormality. IMPRESSION: 1. No acute cardiopulmonary disease. HS:Y ATED BY: WANG VIDALES Jr. DO DICTATED DATE/TIME: 02/22/25 1819 PATIENT: CORETTA SAWANT ACCT: [id number] UNIT: [id number] : 1995 LOC: OVERFLOW ROOM / BED: [address] [place] [address] / AGE / SEX: 29 / M ADM STATUS: ADM IN SERVICE 2139 ORDERING PHYSICIAN: PAPO VALE PROCEDURE(s): ABDL - ABDOMEN LIMITED REASON: HISTORY OF ALCOHOLISM, TRANSAMINITIS ORDER NUMBER(s): [id number], ACCESSION NUMBER(s): [id number] INDICATION: HISTORY OF ALCOHOLISM, TRANSAMINITIS TECHNIQUE: Multiple real-time sonographic images were obtained of the right upper quadrant. COMPARISON: US ABDOMEN LIMITED on DOS: 10/27/23 FINDINGS: Liver appears mildly enlarged measuring 17.8 cm and demonstrates diffuse increased echogenicity consistent with fatty infiltration . No focal lesion is identified in the liver. No evidence of intrahepatic or extrahepatic biliary ductal dilatation with the common bile duct measuring 5 mm. Gallbladder appears unremarkable with no evidence of stones, wall thickening or pericholycystic fluid. Sonographic Conti's sign was reportedly negative. Right kidney measures 12.7 cm and appears unremarkable. No hydronephrosis. Pancreas is obscured by overlying bowel gas. No free fluid/fluid collection. IMPRESSION: No acute abnormality identified. Fatty infiltration of the liver. ATED BY: GUILLERMO DICKERSON MD DICTATED DATE/TIME: 02/22/25 2309 Laboratory Results Test 02/25/25 08:19 02/23/25 04:19 02/23/25 01:38 02/22/25 23:00 Sodium Level 132 mmol/L (136-145) Potassium Level 3.6 mmol/L (3.5-5.1) Chloride Level 98 mmol/L (98-107) Carbon Dioxide Level 25 mmol/L (20-31) Anion Gap 9 (5-15) Blood Urea Nitrogen 8 mg/dL (9-23) Creatinine 0.94 mg/dL (0.700-1.30) Glomerular Filtration Rate Calc 112 mL/min (>90) BUN/Creatinine Ratio 8.5 (10.0-20.0) Serum Glucose 121 mg/dL (74-106) Calcium Level 9.7 mg/dL (8.7-10.4) White Blood Count 4.7 10^3/uL (4.4-10.8) Red Blood Count 4.64 10^6/uL (4.5-5.90) Hemoglobin 16.2 g/dL (13.5-17.5) Hematocrit 45.9 % (41.0-53.0) Mean Corpuscular Volume 99.0 fL (80.0-100.0) Mean Corpuscular Hemoglobin 34.8 pg (28.0-32.0) Mean Corpuscular Hemoglobin Concent 35.2 g/dL (32.0-36.0) Red Cell Distribution Width 12.2 % (11.8-14.3) Platelet Count 204 10^3/uL (140-450) Mean Platelet Volume 8.0 fL (6.9-10.8) Neutrophils (%) (Auto) 47.8 % (37.0-80.0) Lymphocytes (%) (Auto) 37.1 % (10.0-50.0) Monocytes (%) (Auto) 12.1 % (0.0-12.0) Eosinophils (%) (Auto) 1.8 % (0.0-7.0) Basophils (%) (Auto) 1.2 % (0.0-2.0) Neutrophils # (Auto) 2.3 10 ^3/uL (1.6-8.6) Lymphocytes # (Auto) 1.7 10 ^3/uL (0.4-5.4) Monocytes # (Auto) 0.6 10 ^3/uL (0-1.3) Eosinophils # (Auto) 0.1 10 ^3/uL (0-0.8) Basophils # (Auto) 0.1 10 ^3/uL (0-0.2) Nucleated Red Blood Cells 0.2 % Magnesium Level 1.7 mg/dL (1.6-2.6) Total Bilirubin 1.6 mg/dL (0.2-1.0) Aspartate Amino Transferase (AST) 41 U/L (13-40) Alanine Aminotransferase (ALT) 62 U/L (7-40) Alkaline Phosphatase 61 U/L (46-116) Lactate Dehydrogenase 215 U/L (120-246) Total Protein 7.1 g/dL (5.7-8.2) Albumin 4.5 g/dL (3.2-4.8) Lactic Acid Level 1.2 mmol/L (0.4-2.0) Urine Color Yellow (Yellow) Urine Clarity Clear (Clear) Urine pH 7.0 (5.0-9.0) Urine Specific Coleman 1.024 (1.001-1.035) Urine Protein 1+ (Negative) Urine Ketones 2+ (Negative) Urine Blood Negative /uL (Negative) Urine Nitrite Negative (Negative) Urine Bilirubin Negative (Negative) Urine Urobilinogen 4 mg/dL (Negative) Urine Leukocyte Esterase Negative /uL (Negative) Urine RBC 4 /hpf (0 - 3) Urine Microscopic WBC 1 /HPF (0-3) Urine Squamous Epithelial Cells None seen /hpf (<5) Urine Bacteria None seen /hpf (None Seen) Urine Hyaline Casts Few /lpf (0 - 2) Urine Mucus Few (None Seen) Urine Glucose Normal mg/dL (Normal) Urine Opiates Screen Neg (NEGATIVE) Urine Fentanyl Screen Neg (NEGATIVE) Urine Barbiturates Screen Neg (NEGATIVE) Urine Phencyclidine Screen Neg (NEGATIVE) Urine Amphetamines Screen Neg (NEGATIVE) Urine Benzodiazepines Screen Neg (NEGATIVE) Urine Cocaine Screen Neg (NEGATIVE) Urine Cannabinoids Screen Neg (NEGATIVE) Test 02/22/25 21:01 02/22/25 18:15 02/22/25 17:11 Plasma/Serum Blood Alcohol 68.9 mg/dL (<10) Troponin I High Sensitivity 32 ng/L (</=54) B-Type Natriuretic Peptide 10.50 pg/mL (0-100) Lipase 51 U/L (12-53) Thyroid Stimulating Hormone (TSH) 1.90 uIU/mL (0.55-4.78) Hepatitis A IgM Antibody Negative Hepatitis B Surface Antigen Negative (Negative) Hepatitis B Surface Antibody Negative (Negative) Hepatitis B Core IgM Antibody Negative (Negative) Hepatitis C Antibody Negative (Negative) Other Laboratory Tests 02/25/25 08:19 02/23/25 04:19 Brief Hx & Hospital Course: History of Present Illness Patient is 29 years old male with past medical history of hypertension, alcohol dependence came with a complaint of chest pain. As per patient he started having chest pain in the morning around 9:00 a.m when he was lying down., gradual onset, central, pressure-like, 8/10 at the beginning no aggravating or relieving factor. Patient also reported feeling shaking, dizzy but no loss of consciousness. Patient also had nausea and vomiting once per no blood, yellowish fluid. On further inquiry patient reported feeling anxious, shaking of the hands. As per patient he drinks almost 12 beers per day for last 8 years, he did not a little bit less this morning and after that he started having all this symptoms. Patient denied any fever, acute constipation or diarrhea, acute joint pain or swelling, sick contact, acute dysarthria or change in vision. Initial lab workup revealed hypokalemia with a potassium 3.2, transaminitis with elevated serum bilirubin 1.3, AST 63, ALT 84, lactic acid 2.2, negative for troponin I and BNP. UDS negative. No PCP per patient, not seeing any doctor Past Medical History: Hypertension, not on any medication Past Surgical History: Bilateral inguinal hernia repair when he was child Family History: Dad has hypertension, diabetes mellitus Past Social History: Lives with parents, vapes, occasional marijuana, drink alcohol almost 12 beers per day for last 8 years. Unemployed Home meds-denies taking any meds Brief Hospital course Patient is 29 year male with a past medical history of hypertension but noncompliant on medication presented to the ED after having chest pain, and tremors for 1 day. According to the patient, about 9:00 a.m. 02/22/2025 when lying bed, patient started having a pressure-like sensation on his chest. he rated it 8/10 and with no aggravating or relieving factor. Patient also noticed dizziness and shaking of his upper extremities. He vomited once. Vomitus was nonbloody, just yellowish in color. The patient is alcohol dependent. He mentioned that he drinks almost 12 bottles of beers each day and he has been doing so for the past 8 years. He mentioned that he has had about 3 withdrawal with the last experience being last year. He denied any dizziness, seizures, tactile and visual hallucination, nausea. The only thing he experienced was mild tremors and tachycardia with a CIWA score of 4. Of note patient's blood pressure was also highly elevated he was started on nifedipine 30 mg dialy. By the next day there was not much changes in his blood pressure. Thus, I added chlorothiazide 12.5 mg daily. Patient was feeling better and plan was discharge him home and follow back up at the discharge Clinic in 7 days. Last night, patient's vital status change close to the evening of 02/24/2025. Therefore the on-call physician held the discharge. The following morning. Patient was better. His blood blood pressure was better with mild tarchycardia. I reassumed the discharge plan. Two hours later before the discharge, his vital were showing signs of probable underlying infection. He was tachycardic with low grade fever. I cancelled the discharge orders and ordered for UA and blood culture. However, the nurse taking care of him went to lunch and did not see my cancelled orders. So, the nurse who replace the initial nurse when she went to lunch processed the discharge. Upon hearing this I called to called the patient to explained what happened and apologize. Sent him oral antibiotics Augmentin and asked him to follow up at the discharge clinic on Sunday02/27/2025. However, if he begins to feel very unwell, he should report back to the ED as soon as possible. Re view of systems Constitutional: Denies fever no chills no feeling of malaise HEENT: Denies headache, ear pain, ear discharges, conjunctivitis, nasal discharge throat pain Cardiovascular: Denies chest pain, palpitation, orthopnea, PND, or pedal edema Respiratory: Denies shortness of breath, cough cough, sputum production, hemoptysis, GI: Denies abdominal pain, nausea, vomiting, diarrhea, hematemesis, hematochezia, : Denies frequency, urgency, hematuria, Endocrine: Denies unintentional weight gain or weight loss, feeling of hot flashes, [place]: Denies easy bruising, bleeding disorders, epistaxis Musculoskeletal: Denies joint pains, muscle aches Psych: No evidence of depression, leah, suicidal ideation Examination General Appearance: Alert, Oriented X3, Cooperative, No acute distress HEENT: Atraumatic, PERRLA, EOMI, Mucous membrane moist/pink Respiratory: Clear to auscultation, Normal air movement Cardiovascular: Regular rate, Normal S1, Normal S2, No murmurs, no chest wall tenderness Abdominal: NO distention, no tenderness, bowel sounds present, no scars noted Extremities: No clubbing, No cyanosis, No edema, Normal pulses, No tenderness/swelling Skin: No rashes, No breakdown, No significant lesion Neuro: Normal gait, Normal speech, Strength at 5/5 X4 ext, Normal tone, Sensation intact, Cranial nerves 3-12 NL, Reflexes 2+ Psych/Mental Status: Mental status NL, Mood NL Diagnosis Acute alcohol withdrawal Alcohol dependence Hypertensive urgency Acute chest pain rule out acute coronary syndrome Prolong QTc Lactic acidosis Mild hypokalemia Hepatic steatosis Hepatomegaly Grade 1 Obesity,BMI: 32.1 Transaminitis lower Grade fever Discharge plan Continue Antihypertensive medication (nifedipine 60mg daily , hydrochlorothiazide 12.5) Counseled patient extensively on alcohol cessation Continue folic acid 1mg daily Continue thiamine 100mg daily Augmentin 875 for 7 days Follow up at the discharge clinic on 02/27/2025 and for blood culture Find a PCP and maintain appointment with him/her for continuity of care Discharge plan discussed with DR. Marcum. Condition at Discharge: Stable Final Diagnosis/Problems List Acute alcohol withdrawal Alcohol dependence Hypertensive urgency Acute chest pain rule out acute coronary syndrome Prolong QTc Lactic acidosis Mild hypokalemia Hepatic steatosis Hepatomegaly Grade 1 Obesity,BMI: 32.1 Transaminitis Discharge Disposition: Home Discharge Instruct/Medications Diet: Regular Activity: No Restrictions, As Tolerated Follow Up/Referral: 7 DAYs at the Discharge clinic Medications: Nifedipine 60mg daily CHLOROTHIAZIDE 12.5 Discharge Statement: "Patient was advised to return to the ER or call 911 if any headaches, dizziness, shortness of breath, chest pain, abdominal pain, bleeding, fevers, or worsening of medical condition. Patient was counseled about treatment plan, medications, possible side effects, patientverbalized understanding. All questions were answered to the best of my ability. This discharge took greater then 30 minutes in planning, reviewing documentation, counseling the patient, and discussing with other team members." ASSESSMENT ASSESSMENT Assessment Acute alcohol withdrawalAlcohol dependenceHypertensive urgencyAcute chest pain rule out acute coronary syndromeProlong QTcLactic acidosisMild hypokalemiaHepatic steatosisHepatomegalyGrade 1 Obesity,BMI: 32.1Transaminitis Date of Service: February 25, 2025 Billing Provider: LORIE VALDEZ MD Common Visit Codes: 58088-EWE/OBS DISCH DAY >30min TRACEY GATES RESIDENT February 26, 2025 20:21 LORIE VALDEZ MD March 02, 2025 00:37
--- NOTE | 2025-02-27 14:36 | ECG ---
[facility] Test Date: 2025-02-23 Test Time: 10:38:50 Pat Name: CORETTA SAWANT Department: er Room: [facility]1T A Gender: M Sow Manager: hari : 1995 Requested By: IVETTE WEBB Order Number: [id number] Reading MD: Tobi Darden Measurements Intervals [place] Rate: 76 P: 65 VT: 160 QRS: 54 QRSD: 120 T: 27 QT: 435 QTc: 490 Interpretive Statements Incomplete analysis due to missing data in precordial lead(s) Sinus rhythm Nonspecific intraventricular conduction delay ST elevation suggests acute pericarditis Missing lead(s): V4 Electronically Signed On 02-28-2025 20:56:08 PDT by Tobi Darden Please click the below link to view image of tracing.
== END 2025-02-25 14:30 | disposition home or self-care (01) | DRG 199 ==
LOC: ER 16:43 → OVERFLOW 20:44 → TELE-WESTW 20:47
PROVIDERS: ADMIT Student in an Organized Health Care Education/Training Program; ATTEND Emergency Medicine
DX: I16.0 Hypertensive urgency (principal); E87.20 Acidosis, unspecified; I24.9 Acute ischemic heart disease, unspecified; K76.0 Fatty (change of) liver, not elsewhere classified; F10.239 Alcohol dependence with withdrawal, unspecified; I10 Essential (primary) hypertension; R16.0 Hepatomegaly, not elsewhere classified; E87.6 Hypokalemia; E66.9 Obesity, unspecified; F17.210 Nicotine dependence, cigarettes, uncomplicated; F12.90 Cannabis use, unspecified, uncomplicated; Z79.2 Long term (current) use of antibiotics; Z79.899 Other long term (current) drug therapy; Z83.3 Family history of diabetes mellitus; Z82.49 Family history of ischemic heart disease and other diseases of the circulatory system; Z68.32 Body mass index [BMI] 32.0-32.9, adult; Z56.0 Unemployment, unspecified; Y90.3 Blood alcohol level of 60-79 mg/100 ml
CPT/HCPCS: 36415; 71045; 76705; 80048; 80053; 80074; 80307; 80320; 81001; 83605; 83615; 83690; 83735; 83880; 84443; 84484; 85025; 86706; 93005; 93306; 96372; 96374; 96375; G0378; J2405; J2470; J7060

== ENCOUNTER 2025-06-13 11:20 | Emergency (ER) | payer MEDICAID ==
[~2025-06-13] VITALS: Ht 175.3 cm; Wt 98.3 kg
[~2025-06-13 11:20] MED LIST changes: +ACET-1882 PO; +AUG875T PO; -BACDST PO; -CEPH500T PO; +FOLI-119 PO; +HYDR25TA5 PO; +MULTTAB99 PO; +NIFE1TAB31 PO; +THIA100T10 PO
[2025-06-13 11:58] LABS: Nucleated Red Blood Cells % 0.2 %
[2025-06-13 12:00] LABS: Hematocrit 51.2 % (41.0-53.0); Hemoglobin 18.5 g/dL (13.5-17.5); Mean Corpuscular Hemoglobin 35.0 pg (28.0-32.0); Mean Corpuscular Volume 97.1 fL (80.0-100.0)
[2025-06-13 12:08] LABS: Chloride 103 mmol/L (98-107); Potassium 4.0 mmol/L (3.5-5.1); Sodium 138 mmol/L (136-145)
[2025-06-13 12:09] LABS: Anion Gap 12 (5-15); Calcium 9.8 mg/dL (8.7-10.4); Carbon Dioxide 23 mmol/L (20-31)
[2025-06-13 12:14] LABS: BUN/Creatinine Ratio 6.4 (10.0-20.0)
[2025-06-13 12:17] LABS: Blood Urea Nitrogen 6 mg/dL (9-23); Glucose 153 mg/dL (74-106)
--- NOTE | 2025-06-13 12:24 | ED.PDOC ---
HPI (NEURO) HPI Comments 29 y.o male presents to the ED s/p seizure today. Patient is a poor historian, states he still feels confused but was able to mention having an unwitnessed seizure today, woke up and developed hematemesis. Patient is unsure if he was diagnosed with seizures, states he has had them in the past and is unsure when his last one was. Patient is ambulatory with out assistance. He notes occasional use of alcohol, drinking every other day. Chief Complaint: Abdominal Pain Time Seen by MD: 12:40 Primary Care Provider: none Reviewed Notes: Nurses Notes, Medications, Allergies Information Source: Patient Mode of Arrival: Ambulatory Severity: Moderate Timing: Hours Duration: Since onset Seizure Location: Generalized Onset: At rest Symptoms: None Before: Normal During: LOC After: Normal Mentation History of: Seizure Disorder Modifying factors: Nothing Associated Signs and Symptoms: Nausea, Vomiting Past Medical History PAST MEDICAL HISTORY: HTN Surgical History: Hernia Repair Family History Family History: Family hx of DM Social History Smoker: Cigarettes Alcohol: Heavy Drugs: Denies Drug Use Lives In: Home Constitutional: denies: chills, diaphoresis, fatigue, fever, malaise, sweats, weakness, others EENTM: denies: blurred vision, double vision, ear bleeding, ear discharge, ear drainage, ear pain, ear ringing, eye pain, eye redness, hearing loss, mouth pain, mouth swelling, nasal discharge, nose bleeding, nose congestion, nose pain, photophobia, tearing, throat pain, throat swelling, voice changes, others Respiratory: denies: cough, hemoptysis, orthopnea, SOB at rest, shortness of breath, SOB with excertion, stridor, wheezing, others Cardiovascular: denies: chest pain, dizzy spells, diaphoresis, Dyspnea on exertion, edema, irregular heart beat, left arm pain, lightheadedness, palpitations, PND, syncope, others Gastrointestinal: reports: hematemesis; denies: abdomen distended, abdominal pain, blood streaked bowels, constipated, diarrhea, dysphagia, difficulty swallowing, melena, nausea, poor appetite, poor fluid intake, rectal bleeding, rectal pain, vomiting, others Genitourinary: denies: burning, dysuria, flank pain, frequency, hematuria, inco ntinence, penile discharge, penile sore, pain, testicle pain, testicle swelling, urgency, others Neurological: denies: dizziness, fainting, headache, left sided numbness, left sided weakness, numbness, paresthesia, pre-existing deficit, right sided numbness, right sided weakness, seizure, speech problems, tingling, tremors, weakness, others Musculoskeletal: denies: back pain, gout, joint pain, joint swelling, muscle pain, muscle stiffness, neck pain, others Integumetry: denies: bruises, change in color, change in hair/nails, dryness, laceration, lesions, lumps, rash, wounds, others Allergic/Immunocompromised: denies: Difficulty Healing, Frequent Infections, Hives, Itching, others Hematologic/Lymphatic: denies: anemia, blood clots, easy bleeding, easy bruising, swollen glands, others Endocrine: denies: excessive hunger, excessive sweating, excessive thirst, excessive urination, flushing, intolerance to cold, intolerance to heat, unexplained weight gain, unexplained weight loss, others Psychiatric: denies: anxiety, bipolar disorder, depression, hopeless, panic disorder, schizophrenia, sleepless, suicidal, others All Other Systems: Reviewed and Negative Physical Exam General Appearance: Moderate Distress HEENT: Normal ENT Inspection, Pharynx Normal, TMs Normal Neck: Full Range of Motion, Non-Tender, Normal, Normal Inspection Respiratory: Chest Non-Tender, Lungs Clear, No Accessory Muscle Use, No Respiratory Distress, Normal Breath Sounds Cardiovascular: No Edema, No JVD, No Murmur, No Gallop, Normal Peripheral Pulses, Regular Rate/Rhythm Breast Exam: Deferred Gastrointestinal: No Organomegaly, Non Tender, No Pulsatile Mass, Normal Bowel Sounds, Soft Genitalia: Deferred Pelvic: Deferred Rectal: Deferred Extremities: No calf tenderness, Normal capillary refill, Normal inspection, Normal range of motion, Non-tender, No pedal edema Musculoskeletal : Apperance: Normal Neurologic: Alert, process excellence manager II-XII nml as Tested, No Motor Deficits, Normal Affect, Normal Mood, No Sensory Deficits Cerebellar Function: Normal Reflexes: Normal Skin: Dry, Normal Color, Warm Peripheral Pulses: 3+ Radial (R), 3+ Radial (L) Lymphatic: No Adenopathy Was a procedure done? Was a procedure done?: No Differential Diagnosis (SZ) Seizure: Psychogenic Seizure, Alcohol Withdrawl, Syncope, Encephalopathy, Epilepsy-Break Through, Epilepsy-Status X-Ray, Labs, Meds, VS Vital Signs Date Time Temp Pulse Resp B/P (MAP) Pulse Ox O2 Delivery O2 Flow Rate FiO2 06/13/25 13:41 99.0 107 19 158/107 (124) 100 99.0 06/13/25 11:22 99.6 125 18 157/106 97 99.6 Lab Test 06/13/25 11:46 Range/Units White Blood Count 7.7 4.4-10.8 10^3/uL Red Blood Count 5.27 4.5-5.90 10^6/uL Hemoglobin 18.5 H 13.5-17.5 g/dL Hematocrit 51.2 41.0-53.0 % Mean Corpuscular Volume 97.1 80.0-100.0 fL Mean Corpuscular Hemoglobin 35.0 H 28.0-32.0 pg Mean Corpuscular Hemoglobin Concent 36.1 H 32.0-36.0 g/dL Red Cell Distribution Width 12.4 11.8-14.3 % Platelet Count 280 140-450 10^3/uL Mean Platelet Volume 8.0 6.9-10.8 fL Neutrophils (%) (Auto) 70.4 37.0-80.0 % Lymphocytes (%) (Auto) 18.3 10.0-50.0 % Monocytes (%) (Auto) 8.5 0.0-12.0 % Eosinophils (%) (Auto) 1.8 0.0-7.0 % Basophils (%) (Auto) 1.0 0.0-2.0 % Neutrophils # (Auto) 5.4 1.6-8.6 10 ^3/uL Lymphocytes # (Auto) 1.4 0.4-5.4 10 ^3/uL Monocytes # (Auto) 0.7 0-1.3 10 ^3/uL Eosinophils # (Auto) 0.1 0-0.8 10 ^3/uL Basophils # (Auto) 0.1 0-0.2 10 ^3/uL Nucleated Red Blood Cells 0.2 % Sodium Level 138 136-145 mmol/L Potassium Level 4.0 3.5-5.1 mmol/L Chloride Level 103 98-107 mmol/L Carbon Dioxide Level 23 20-31 mmol/L Anion Gap 12 5-15 Blood Urea Nitrogen 6 L 9-23 mg/dL Creatinine 0.94 0.700-1.30 mg/dL Glomerular Filtration Rate Calc 112 >90 mL/min BUN/Creatinine Ratio 6.4 L 10.0-20.0 Serum Glucose 153 H 74-106 mg/dL Calcium Level 9.8 8.7-10.4 mg/dL Plasma/Serum Blood Alcohol < 3.0 <10 mg/dL Current Medications Medications (Trade) Dose Ordered Sig/López Route Start Time Stop Time Status Last Admin Lorazepam (Ativan Inj) 0.5 mg ONCE ONCE IV 06/13/25 12:30 06/13/25 12:31 DC 06/13/25 13:06 Sodium Chloride 1,000 ml @ 1,000 mls/hr Q1H ONCE IV 06/13/25 12:30 06/13/25 13:29 DC 06/13/25 13:06 Patient alert. History of alcohol abuse. No sign of any seizure. No injuries. Vitals stable. Establish intravenous access. Was given fluids. Was given Ativan. WBC within normal limits. Hemoglobin elevated. Counseled patient on effects of alcohol for 15 minutes. Blood sugar elevated. Explained to the patient. Was told to follow up with his primary care physician. Was told to come back if there is any problem. Time of 1ST Reevaluation: 12:19 Reevaluation 1ST: Improved Patient Education/Counseling: Diagnosis, Treatment, Prognosis Family Education/Counseling: No Family Present Departure 1 Departure Time of Disposition: 13:53 Impression: Primary Impression: Uncontrolled diabetes mellitus Qualified Codes: E13.65 - Other specified diabetes mellitus with hyperglycemia Additional Impressions: Dehydration Alcohol abuse Disposition: 01 HOME / SELF CARE / HOMELESS Condition: Good Discharged With: Self Critical Care Note Critical Care Time?: No Stability Stability form required: No I personally scribed for JUSTEN MCCARTNEY MD ([email or web address]) on 06/13/25 at 12:24. Electronically submitted by Missy Hayden ([facility]). JUSTEN MCCARTNEY MD Jun 13, 2025 12:24
[2025-06-13] MEDS: SODIUM CHLORIDE 0.9% 1,000 ML IV ONE (13:06)
[2025-06-13] MEDS: LORazepam 2MG/ML-1ML VIAL IV ONE (13:06)
[2025-06-13 15:41] VITALS: BP 166/98; PULSE 100; RESP 18; TEMP 98.1; O2SAT 96
== END 2025-06-13 15:38 | disposition home or self-care (01) ==
LOC: ER 11:20
DX: E11.65 Type 2 diabetes mellitus with hyperglycemia (principal); E86.0 Dehydration; F10.10 Alcohol abuse, uncomplicated; I10 Essential (primary) hypertension; F17.210 Nicotine dependence, cigarettes, uncomplicated; Z98.890 Other specified postprocedural states; Z79.899 Other long term (current) drug therapy
CPT/HCPCS: 36415; 80048; 80320; 85025; 96361; 96374; 99283; J2060; J7030